=== PATIENT | female | born 1955 | race Two or more races ===

== ENCOUNTER 2025-01-15 11:21 | Emergency (ER) | payer OTHER ==
[~2025-01-15] VITALS: Ht 160 cm; Wt 36.3 kg
[2025-01-15] MEDS ORDERED: ALLERGY RELIE15.8 ML NASAL (12:43)
[2025-01-15] MEDS ORDERED: LEVOTHYROXINE13 MCG PO (12:43)
== END 2025-01-15 17:34 | disposition home or self-care (01) ==
LOC: ER 13:19
DX: S52.124A Nondisplaced fracture of head of right radius, initial encounter for closed fracture (principal); W19.XXXA Unspecified fall, initial encounter; Y93.89 Activity, other specified; Y92.89 Other specified places as the place of occurrence of the external cause; Y99.9 Unspecified external cause status; M85.88 Other specified disorders of bone density and structure, other site; E11.9 Type 2 diabetes mellitus without complications; Z87.09 Personal history of other diseases of the respiratory system; Z86.59 Personal history of other mental and behavioral disorders